=== PATIENT | male | born 1975 | race Caucasian/White ===

== ENCOUNTER 2017-03-14 18:10 | Observation (INO) ==
[2017-03-14] MEDS ORDERED: *HR* Promethazine 25 MG/ML VIAL IVP PRN (21:08)
[2017-03-14] MEDS: *HR* HYDROmorphone (PF) 1 MG/ML SYRINGE IVP PRN (21:39)
[2017-03-14] MEDS: 0.9 % Sodium Chloride 1,000 ML IVC SCH (21:41)
[2017-03-14] MEDS: Ondansetron 4 MG/2 ML VIAL IVP PRN (21:43)
[2017-03-14] MEDS: Pantoprazole 40 MG VIAL IVP SCH (21:45)
[2017-03-14] MEDS: Piperacillin/Tazobactam 3.375 GM in D5% in Water (Mini-Bag+) 100 ML IVPB SCH (21:48)
[2017-03-15] MEDS: Piperacillin/Tazobactam 3.375 GM in D5% in Water (Mini-Bag+) 100 ML IVPB SCH ×3 (05:08→22:04)
[2017-03-15] MEDS ORDERED: Naloxone 0.4 MG/ML INJ IVP PRN ×2 (07:20→20:49)
[2017-03-15 08:18] LABS: Basophils % 0.5 %; Eosinophils # 0.1 K/mcL (0.0-0.6); Eosinophils % 1.8 %; Hematocrit 43.6 % (37.5-50.1); Hemoglobin 14.4 g/dL (12.9-16.9); Immature Granulocytes % 0.2 % (0-4); Immature Platelets 8.7 % (1.1-6.1); Lymphocytes # 1.5 K/mcL (0.6-4.6); Lymphocytes % 25.6 %; Mean Corpuscular Hemoglobin 28.7 pg (28.0-33.3); Mean Platelet Volume 11.5 fL (9.4-12.4); Monocytes # 0.6 K/mcL (0.0-1.3); Monocytes % 10.4 %; Neutrophils # 3.5 K/mcL (1.6-8.9); Platelet Count 130 K/mcL (140-400); Red Blood Count 5.01 M/mcL (4.19-5.50); Red Cell Distribution Width 12.9 % (11.5-14.5); Segmented Neutrophils % 61.5 %
[2017-03-15 08:29] LABS: BUN/Creatinine Ratio 9 (6-26); Blood Urea Nitrogen 12 mg/dL (8-26); Calcium 8.8 mg/dL (8.6-10.8); Carbon Dioxide 27 mEq/L (19-29); Chloride 105 mEq/L (98-109); Glucose 89 mg/dL (70-99); Osmolality,Calculated 283 (280-300); Potassium 4.2 mEq/L (3.5-4.5); Sodium 137 mEq/L (136-145); eGFR For African Americans > 60 (> 60); eGFR For Non-African Americans > 60 (> 60)
[2017-03-15] MEDS: Pantoprazole 40 MG VIAL IVP SCH (08:36)
[2017-03-15] MEDS: Ondansetron 4 MG/2 ML VIAL IVP PRN (08:53)
[2017-03-15] MEDS: *HR* HYDROmorphone (PF) 1 MG/ML SYRINGE IVP PRN (08:53)
--- NOTE | 2017-03-15 08:53 | General Surg History&Physical ---
<Refugio Sanon - Last Filed: 03/15/17 09:01> Date of Encounter: 03/15/17 Time of Encounter: 08:15 Assessment and Plan (1) Acute appendicitis Current Visit: No Status: Acute 42M with no significant past medical history presented with RUQ sharp pain. CT abd/pelvis indicates uncomplicated acute appendicitis. Consent form signed for laparoscopic appendectomy by Dr. Moss later today. Patient understands the risk and benefits of the surgery. Continue NPO until surgery. Continue pain management. Continue PPI. Continue Zosyn Day #1 The assessment and plan as outlined above was discussed with the patient and/or family members who expressed understanding and agreement. All questions were answered. Qualifiers: Acute appendicitis type: unspecified acute appendicitis type Qualified Code (s): K35.80 - Unspecified acute appendicitis History of Present Illness Chief complaint: RUQ abdominal pain HPI: Mr. Cannon is a 42 year old male with no significant past medical history and surgical history includes "back surgery" presented to the emergency room on for RUQ abdominal pain. He denies any previous abdominal surgeries. He states that he is allergic to codeine; it makes his stomach upset. He denies smoking, alcohol use, or illicit drug use. He is currently not taking any medications. His abdominal pain started Wednesday morning without any inciting factors. The pain was diffuse and got worse with food intake. By Wednesday morning , his pain worsened and became sharp on the RUQ. He states the pain was 10/10. He states any movement made the pain worse. He did not take any medications to treat it and went to the ED. Today, his pain is improved with dilaudid . His nausea is controlled with Zofran. CT abd/pelvis indicates uncomplicated acute appendicitis. Consent for laparoscopic appendectomy was obtained. The patient understands the risk and benefits of the surgery. Patient has been NPO since midnight. Past Med Surg Social Fam HX - Past Medical History Medical history: no medical history Psychiatric history: no psych history - Social History Smoking Status: Never smoker Smokeless Tobacco Status: No Alcohol use: none Drug use: none - Family History Father Living Status: Still Living Hx Family Cardiac Disorders: Yes Hx Family Respiratory Disorders: No Hx Family Cancer: No Hx Family GI Disorders: No Hx Family Genitourinary Disorders: No Hx Family Endocrine Disorder: No Hx Family Musculoskeletal Disorders: No Hx Family Neuromuscular Disorders: No Hx Family Neurologic Disorders: No Hx Family HEENT Disorders: No Hx Family Autoimmune Disorders: No Hx Family Reproductive Disorders: No Hx Family Psychosocial Disorders: No Hx Family Medical Disorders: No Medications and Allergies No Known Home Drugs 03/14/17 [History] 3 Allergy/AdvReac Type Severity Reaction Status Date / Time No Known Allergies Allergy Verified 03/14/17 14:31 Review of Systems All systems PM: A 10-system review of systems was performed and is negative for pertinent findings except as documented above in the HPI. - Constitutional anorexia, no chills, no fever(s) - EENT Nose, mouth and throat: no sore throat, no throat swelling - Cardiovascular no chest pain, no diaphoresis, no palpitations - Respiratory no cough, no dyspnea - Gastrointestinal abdominal pain, nausea, no change in bowel habits, no constipation, no diarrhea , no hematemesis, no vomiting - Musculoskeletal no numbness, no tingling - Integumentary no unusual bruising, no wounds, no jaundice - Neurological no confusion, no dizziness, no memory loss, no numbness, no paresthesias, no syncope, no tingling - Psychiatric no anxiety - Hematologic/Lymphatic no easy bleeding, no easy bruising General Surgery Exam Initial Vital Signs Temp Pulse Resp BP Pulse Ox 98.0 F 73 16 134/86 95 03/14/17 20:48 03/14/17 20:48 03/14/17 20:48 03/14/17 20:48 03/14/17 20:48 - General physical appearance well developed, well nourished, no distress - Eyes PERRL, normal ocular movement - ENT normal mucosa, no hearing loss, no congestion, atraumatic, normocephalic, CN 2- 12 grossly intact - Neck trachea midline, no lymphadectomy, no venous distension - Respiratory normal expansion, normal respiratory effort, clear to auscultation - Cardiovascular Cardiovascular exam: Present: RRR, no murmurs/rubs/gallops - Abdomen Abdomen general surgery: Present: bowel sounds present, soft, tender, guarding, rebound (RUQ). Absent: masses, surgical scars, wound Abdominal Tenderness: Present: RUQ - Integumentary Integumentary general surgery: Present: warm and dry, no abnormal pigmentation - Neurologic Present: CN 2-12 grossly intact, normal coordination, normal sensation - Psychiatric Psychiatric general surgery: Present: speech is normal, memory intact Results - Labs 03/15/17 07:45 03/15/17 07:45 Abnormal lab results Plt Count 130 K/mcL (140-400) L 03/15/17 07:45 Immature Plt Fraction 8.7 % (1.1-6.1) H 03/15/17 07:45 Creatinine 1.28 mg/dL (0.72-1.25) H 03/15/17 07:45 Diabetes panel 03/15/17 Range/Units 07:45 Sodium 137 (136-145) mEq/L Potassium 4.2 (3.5-4.5) mEq/L Chloride 105 (98-109) mEq/L Carbon Dioxide 27 (19-29) mEq/L BUN 12 (8-26) mg/dL Creatinine 1.28 H (0.72-1.25) mg/dL Glucose 89 (70-99) mg/dL Calcium 8.8 (8.6-10.8) mg/dL Calcium panel 03/15/17 Range/Units 07:45 Calcium 8.8 (8.6-10.8) mg/dL Pituitary panel 03/15/17 Range/Units 07:45 Sodium 137 (136-145) mEq/L Potassium 4.2 (3.5-4.5) mEq/L Chloride 105 (98-109) mEq/L Carbon Dioxide 27 (19-29) mEq/L BUN 12 (8-26) mg/dL Creatinine 1.28 H (0.72-1.25) mg/dL Glucose 89 (70-99) mg/dL Calcium 8.8 (8.6-10.8) mg/dL Adrenal panel 03/15/17 Range/Units 07:45 Sodium 137 (136-145) mEq/L Potassium 4.2 (3.5-4.5) mEq/L Chloride 105 (98-109) mEq/L Carbon Dioxide 27 (19-29) mEq/L BUN 12 (8-26) mg/dL Creatinine 1.28 H (0.72-1.25) mg/dL Glucose 89 (70-99) mg/dL Calcium 8.8 (8.6-10.8) mg/dL All other labs normal. <Moon Moss - Last Filed: 03/15/17 14:42> Date of Encounter: 03/15/17 Time of Encounter: 14:37 Assessment and Plan (1) Leukocytosis Current Visit: Yes Status: Acute The assessment and plan as outlined above was discussed with the patient and/or family members who expressed understanding and agreement. All questions were answered. continue abx, trend wbc Qualifiers: Leukocytosis type: unspecified Qualified Code(s): D72.829 - Elevated white blood cell count, unspecified (2) Acute appendicitis Current Visit: No Status: Acute The assessment and plan as outlined above was discussed with the patient and/or family members who expressed understanding and agreement. All questions were answered. Qualifiers: Acute appendicitis type: unspecified acute appendicitis type Qualified Code (s): K35.80 - Unspecified acute appendicitis (3) Acute appendicitis Current Visit: Yes Status: Acute The assessment and plan as outlined above was discussed with the patient and/or family members who expressed understanding and agreement. All questions were answered. discussed CT and lab results with patient. will plan laparoscopic appendectomy possible open, risks and benefits discussed and patient wishes to proceed npo, ivf hydration prn pain control Abx Qualifiers: Acute appendicitis type: with localized peritonitis Qualified Code(s): K35.3 - Acute appendicitis with localized peritonitis History of Present Illness HPI: Mr. Cannon is a 42 year old male who began having diffuse abdominal pain 2 days ago. Yesterday the pain became prominent in the RLQ and was sharp. He has had nausea since the pain started but no emesis. No diarrhea or dysuria. No fevers, chills or night sweats. Past Med Surg Social Fam HX - Past Medical History Source: patient Medical history: no medical history Psychiatric history: no psych history - Social History Smoking Status: Never smoker Smokeless Tobacco Status: No Alcohol use: none Drug use: none Occupational status: employed Review of Systems All systems PM: reviewed and no additional remarkable complaints except as stated All systems PM: A 10-system review of systems was performed and is negative for pertinent findings except as documented above in the HPI. General Surgery Exam Initial Vital Signs Temp Pulse Resp BP Pulse Ox 98.0 F 73 16 134/86 95 03/14/17 20:48 03/14/17 20:48 03/14/17 20:48 03/14/17 20:48 03/14/17 20:48 - General physical appearance well developed, well nourished, no distress - Eyes PERRL, normal ocular movement - ENT dry mucosa, atraumatic, normocephalic - Neck trachea midline - Respiratory normal expansion, clear to auscultation - Cardiovascular Cardiovascular exam: Present: RRR - Abdomen Abdomen general surgery: Present: bowel sounds present, soft, tender. Absent: guarding, rebound Abdominal Tenderness: Present: RLQ - Integumentary Integumentary general surgery: Present: warm and dry, no abnormal pigmentation - Neurologic Present: CN 2-12 grossly intact, normal coordination - Musculoskeletal Present: normal gait, normal posture - Psychiatric Psychiatric general surgery: Present: A&Ox3, oriented to person, speech is normal, memory intact Results - Labs 03/15/17 07:45 03/15/17 07:45 Abnormal lab results Plt Count 130 K/mcL (140-400) L 03/15/17 07:45 Immature Plt Fraction 8.7 % (1.1-6.1) H 03/15/17 07:45 Creatinine 1.28 mg/dL (0.72-1.25) H 03/15/17 07:45 Diabetes panel 03/15/17 Range/Units 07:45 Sodium 137 (136-145) mEq/L Potassium 4.2 (3.5-4.5) mEq/L Chloride 105 (98-109) mEq/L Carbon Dioxide 27 (19-29) mEq/L BUN 12 (8-26) mg/dL Creatinine 1.28 H (0.72-1.25) mg/dL Glucose 89 (70-99) mg/dL Calcium 8.8 (8.6-10.8) mg/dL Calcium panel 03/15/17 Range/Units 07:45 Calcium 8.8 (8.6-10.8) mg/dL Pituitary panel 03/15/17 Range/Units 07:45 Sodium 137 (136-145) mEq/L Potassium 4.2 (3.5-4.5) mEq/L Chloride 105 (98-109) mEq/L Carbon Dioxide 27 (19-29) mEq/L BUN 12 (8-26) mg/dL Creatinine 1.28 H (0.72-1.25) mg/dL Glucose 89 (70-99) mg/dL Calcium 8.8 (8.6-10.8) mg/dL Adrenal panel 03/15/17 Range/Units 07:45 Sodium 137 (136-145) mEq/L Potassium 4.2 (3.5-4.5) mEq/L Chloride 105 (98-109) mEq/L Carbon Dioxide 27 (19-29) mEq/L BUN 12 (8-26) mg/dL Creatinine 1.28 H (0.72-1.25) mg/dL Glucose 89 (70-99) mg/dL Calcium 8.8 (8.6-10.8) mg/dL All other labs normal. - Imaging CT scan - abdomen: report reviewed, image reviewed CT scan - pelvis: report reviewed, image reviewed - Attending Attestation I examined this patient and my medical decision-making was reviewed with the Resident Physician. I agree with the documented findings, disposition and treatment plan as described except to the extent set forth below.
--- NOTE | 2017-03-15 18:00 | Anesthesia Evaluation PreOp ---
Date of Encounter: 03/15/17 Time of Encounter: 17:57 - Past History Planned Operation: Laparoscopic Appendectomy Cardiac History: Denies any Significant Hx Pulmonary History: Denies Any Significant HX STITCHER HAND History: Denies Any Significant HX Other Medical History: Denies Any Significant HX Anesthesia History: No Prior Anesthetic Complications, Past Anesthesia Alcohol Use: none Drug use: none Medications and Allergies No Known Home Drugs 03/14/17 [History] 3 Allergy/AdvReac Type Severity Reaction Status Date / Time No Known Allergies Allergy Verified 03/14/17 14:31 - Meds/Allergy Pre-op Review Medications Reviewed: Yes Allergies Reviewed: Yes Beta Blockers on Current Med List: No Anesthesia Results - Labs 03/15/17 07:45 03/15/17 07:45 Anesthesia Exam Vital Signs/O2 Sat, Most Current Temp Pulse Resp BP Pulse Ox 98.7 F 75 16 121/78 96 03/15/17 15:57 03/15/17 15:57 03/15/17 15:57 03/15/17 15:57 03/15/17 15:57 Height: 5'8'' Weight: 147 lbs NPO (# of Hours): 8 Pain Scale: 0 Pain Scale Used: Numeric (1 - 10) - HEENT Pupil (Motor): EOMI Mallampati: II Teeth: Normal Oral Opening: Greater than 3 - STITCHER HAND LOC: Oriented STITCHER HAND Motor: Normal RUE, Normal LUE, Normal RLE, Normal LLE, Normal Face STITCHER HAND Sensory: Normal: RUE, LUE, RLE, LLE, Face - Cardiac Rhythm: Regular Murmur: None - Pulmonary Breath Sounds: bilateral Clear Respiratory Effort: Symmetrical Anesthesia Assess/Plan ASA Score: 2 Modified Mary Ellen Scale for Level of Consciousness: Cooperative, oriented, and tranquil Anesthetic Plan: General Monitoring Plan: Standard Monitors Recovery Plan: PACU
[2017-03-15] MEDS ORDERED: Lidocaine -MPF 4% 5 ML AMPUL ONE (18:12)
[2017-03-15] MEDS ORDERED: *HR* HYDROmorphone (PF) 1 MG/ML SYRINGE IVP PRN ×2 (18:22→20:49)
[2017-03-15] MEDS ORDERED: Ondansetron 4 MG/2 ML VIAL IVP ONE (18:22)
[2017-03-15] MEDS ORDERED: Ketorolac 15 MG/ML VIAL IVP ONE (18:22)
[2017-03-15] MEDS ORDERED: Dexamethasone 4 MG/ML VIAL IVP ONE (18:22)
[2017-03-15] MEDS ORDERED: *HR* Promethazine 25 MG/ML VIAL IVP PRN ×2 (18:22→20:49)
[2017-03-15] MEDS ORDERED: *HR* Labetalol 20 MG/4 ML SYRINGE IVP PRN (18:22)
--- NOTE | 2017-03-15 19:33 | Operative Note ---
Date of procedure: 03/15/17 Pre-op diagnosis: acute appendicitis Post-op diagnosis: same (and umbilical hernia) Procedure: Laparoscopic appendectomy and primary repair of umbilical hernia Complications: none immediate Anesthesia: GETA, local Local Anesthetics: 0.5% Sensorcaine HCL SubQ (cc) Surgeon: Moon Moss Estimated blood loss (cc): 5 Specimen: appendix Condition: stable Disposition: PACU Procedure in Detail: The patient was brought into the operating suite and placed supine on the operating table. Sign-in was performed and everyone was in agreement. Anesthesia was induced and patient was endotracheally intubated by anesthesia without incident. An OG tube was placed by anesthesia. The abdomen was prepped and draped in the usual sterile fashion. A timeout was performed and again everyone was in agreement. A supraumbilical incision was made through the skin and the subcutaneous tissue with an 11 blade. Towel clamps were placed on either side of the umbilicus for retraction. S-retractors were used to dissect down to the anterior abdominal wall linea alba fascia. A lorri was used to bluntly dissect into the umbilical hernia. A 5mm laparoscopic was placed into the defect and insufflation was commenced. The area under entry was visualized with a 5mm 0 degree laparoscope and there was no bleeding and no apparent bowel injury. We placed a suprapubic 5 mm port under direct visualization after first incising the skin with an 11 blade. The laparoscope was placed through this and we exchanged the supraumbilical port for a 12 mm port under direct visualization. We then placed another 5 mm port in the left lower quadrant position under direct visualization after first incising the skin with an 11 blade. The patient was placed in slight Trendelenburg left side down position. The cecum was located as was the appendix. The appendix was grasped and retracted anteriorly and caudally with a laparoscopic [place]. A [place] was used to dissect between the mesoappendix and the appendix at the base of the cecum. The mesoappendix was transected with a laparoscopic flex-ex ETS stapler using a white load. The appendix was transected at the base of the cecum with the same stapler utilizing a white load. The appendix was placed in a laparoscopic Endo Catch bag and removed via the supraumbilical incision site. Both staple lines were evaluated and there was no bleeding and both staple lines were intact. The area was irrigated with sterile saline which was then suctioned free from the abdomen. The insufflation was suctioned free from the abdomen and all trochars removed. We closed the abdominal wall at the umbilical hernia site with an 0 Vicryl [id number] stitch. A 30 cc of 0.5% Marcaine was injected subcutaneously at the 3 port sites. The skin at the two 5 mm port sites was closed with 4-0 Monocryl interrupted subcuticular stitches. The skin at the supraumbilical incision site was closed with a 4-0 Monocryl running subcuticular stitch. Steri-Strips were applied to the wounds. The patient was extubated in the OR and tolerated the procedure well and was taken to PACU after all lap and instrument counts were correct at the end of the case.
--- NOTE | 2017-03-15 19:37 | Discharge Summary ---
<Mai Choi - Last Filed: 03/17/17 11:13> Date of Encounter: 03/17/17 - Discharge Diagnosis (1) NYA (acute kidney injury) Priority: Secondary Status: Acute Comments: Improving 1.37>1.26 Avoid nephrotoxic medications Check labs in 2 days - Discharge Medications Prescriptions: OxyCODONE/APAP 5/325 [Percocet 5/325 MG] 1 each PO Q4HR PRN #30 tab PRN Reason: Pain Amoxicillin/Clavulanate [Augmentin] 875 mg PO BIDWM #14 tablet Docusate [Colace] 100 mg PO BID #30 capsule Home Medications: No Known Home Drugs 03/14/17 [History] Amoxicillin/Clavulanate [Augmentin] 875 mg PO BIDWM #14 tablet 03/16/17 [Rx] Docusate [Colace] 100 mg PO BID #30 capsule 03/16/17 [Rx] OxyCODONE/APAP 5/325 [Percocet 5/325 MG] 1 each PO Q4HR PRN #30 tab 03/16/17 [Rx ] Allergies/Adverse Reactions: 3 Allergy/AdvReac Type Severity Reaction Status Date / Time No Known Allergies Allergy Verified 03/14/17 14:31 General Surgery Exam Initial Vital Signs Temp Pulse Resp BP Pulse Ox 98.0 F 73 16 134/86 95 03/14/17 20:48 03/14/17 20:48 03/14/17 20:48 03/14/17 20:48 03/14/17 20:48 Date of admission: 03/14/17 20:15 Primary care physician: PCP NONE - Patient Status Disposition: Home, Self-Care Condition: Good - Discharge Instructions Instructions: Oxycodone/Acetaminophen (By mouth), Amoxicillin/Clavulanate Potassium (By mouth), Laxative, Stool Softeners (By mouth), Laparoscopic Appendectomy (DC) Follow Up With: NONE,PCP [Primary Care Provider] - Mai Choi [employer] [Advanced Practice Nurse] - 03/25/17 8:30 am (surgery follow-up) Forms: Work/School Release Additional Instructions: No lifting more than 20 pounds for 2 weeks. Okay to take a shower in 24 hours. No tub baths or pools for 1 week. Okay to ride in the car wearing a seatbelt and climb steps. No driving until off narcotics for 24 hours and able to react safely Remove Steri-Strips in 1 week Do not take pain medicine/narcotics on an empty stomach it will likely cause nausea and possibly vomiting. If pain medication is too strong okay to break in half Patient counseled on hydration- drink water/gatorade - Hospital Course Hospital course: Mr. Cannon is a 42 year old male - Time Spent with Patient Total time spent providing and/or coordinating discharge services: <Moon Moss - Last Filed: 03/17/17 16:52> Date of Encounter: 03/17/17 Time of Encounter: 10:00 - Discharge Diagnosis (1) Leukocytosis Priority: Secondary Status: Acute Qualifiers: Leukocytosis type: unspecified Qualified Code(s): D72.829 - Elevated white blood cell count, unspecified (2) Acute appendicitis Priority: Primary Status: Acute Qualifiers: Acute appendicitis type: unspecified acute appendicitis type Qualified Code (s): K35.80 - Unspecified acute appendicitis General Surgery Exam Initial Vital Signs Temp Pulse Resp BP Pulse Ox 98.0 F 73 16 134/86 95 03/14/17 20:48 03/14/17 20:48 03/14/17 20:48 03/14/17 20:48 03/14/17 20:48 - General physical appearance well developed, well nourished - Eyes PERRL, normal ocular movement - ENT normal mucosa, normocephalic - Neck trachea midline - Respiratory normal expansion, normal respiratory effort - Cardiovascular Cardiovascular exam: Present: RRR - Abdomen Abdomen general surgery: Present: bowel sounds present, soft, tender ( appropriate post op tenderness). Absent: guarding, rebound - Incision Incision: Present: clean and dry, intact - Integumentary Integumentary general surgery: Present: warm and dry, no abnormal pigmentation - Neurologic Present: CN 2-12 grossly intact - Musculoskeletal Present: normal gait, normal posture - Psychiatric Psychiatric general surgery: Present: A&Ox3, speech is normal Date of admission: 03/14/17 20:15 Primary care physician: PCP NONE Discharging clinician: Moon Moss Anticipated date of discharge: 03/16/17 - Patient Status Overall status at discharge: patient is progressing back to baseline - Diet and Activity Activity: increase activity as tolerated Diet: advance to your usual diet - Hospital Course Hospital course: Mr. Cannon is a 42 year old male admitted with acute appendicitis. He underwent an uncomplicated laparoscopic appendectomy. Postoperatively he was started on clear liquids, IV pain medicine transitioned to by mouth. He was up a bleeding having appropriate bowel and bladder function. Pain was controlled with by mouth medication. He is discharged home in stable condition. - Time Spent with Patient Total time spent providing and/or coordinating discharge services: Less than 30 minutes Labs on day of discharge: Labs from last 24 hours 03/15/17 03/15/17 07:45 07:45 WBC 5.7 RBC 5.01 Hgb 14.4 Hct 43.6 MCV 87.0 MCH 28.7 MCHC 33.0 RDW 12.9 Plt Count 130 L MPV 11.5 Immature Gran % 0.2 Seg Neutrophils % 61.5 Lymphocytes % 25.6 Monocytes % 10.4 Eosinophils % 1.8 Basophils % 0.5 Neutrophils # 3.5 Lymphocytes # 1.5 Monocytes # 0.6 Eosinophils # 0.1 Basophils # 0.0 Immature Plt Fraction 8.7 H Sodium 137 Potassium 4.2 Chloride 105 Carbon Dioxide 27 BUN 12 Creatinine 1.28 H Est GFR ( Amer) > 60 Est GFR (Non-Af Amer) > 60 BUN/Creatinine Ratio 9 Glucose 89 Calculated Osmolality 283 Calcium 8.8 - Attending Attestation patient was seen by nurse practitioner Estefani Choi prior to discharge
[2017-03-15] MEDS ORDERED: Ondansetron 4 MG/2 ML VIAL IVP PRN (20:49)
[2017-03-15] MEDS ORDERED: *HR* HYDROmorphone (PF) 1 MG/ML SYRINGE ONE (20:58)
[2017-03-15] MEDS ORDERED: *HR* Promethazine 25 MG/ML VIAL ONE (21:06)
[2017-03-15] MEDS ORDERED: Piperacillin/Tazobactam 3.375 GM in D5% in Water (Mini-Bag+) 100 ML IVPB SCH (21:12)
[2017-03-15] MEDS: 0.9 % Sodium Chloride 1,000 ML IVC SCH (21:17)
--- NOTE | 2017-03-15 21:31 | Anesthesia Evaluation Post Op ---
Date of Encounter: 03/15/17 Time of Encounter: 21:30 - Vital Signs Vital Signs: Vital Signs/O2 Sat, Most Current Temp Pulse Resp BP Pulse Ox 97.7 F 93 14 131/85 93 03/15/17 20:13 03/15/17 21:24 03/15/17 21:24 03/15/17 21:24 03/15/17 21:24 - Lungs Lungs: Clear Ascult./Percussion - Airway Airway: Non-obstructed - Cardiovascular Regular Rate - Mental Status Mental Status: Alert & Oriented, Answers Appropriately - Pain Pain Scale: 0 Pain Scale used: Numeric (1 - 10) - Nausea Vomiting Nausea Vomiting: Not Present - Hydration Hydration: Ice chips, Able to void - Discharge PostOp Status: Transfer Patient to floor
[2017-03-16] MEDS: Piperacillin/Tazobactam 3.375 GM in D5% in Water (Mini-Bag+) 100 ML IVPB SCH ×3 (04:55→20:42)
[2017-03-16] MEDS: *HR* OxyCODONE/APAP 5/325 TABLET PO PRN ×3 (06:50→23:38)
[2017-03-16] MEDS ORDERED: *HR* Midazolam HCl 2 MG/2 ML VIAL ONE (07:14)
[2017-03-16] MEDS ORDERED: Ondansetron 4 MG/2 ML VIAL ONE (07:14)
[2017-03-16] MEDS ORDERED: Dexamethasone 4 MG/ML VIAL ONE (07:14)
[2017-03-16] MEDS ORDERED: Lidocaine -MPF 2% 2 ML VIAL ONE (07:14)
[2017-03-16] MEDS ORDERED: *HR* FentaNYL (PF) 100 MCG/2 ML VIAL ONE (07:14)
[2017-03-16] MEDS ORDERED: *HR* Propofol 200 MG/20 ML VIAL IVP ONE (07:14)
[2017-03-16] MEDS ORDERED: *HR* Succinylcholine 200 MG/10 ML VIAL IVP ONE (07:14)
[2017-03-16] MEDS ORDERED: *HR* Rocuronium Bromide 50 MG/5 ML VIAL ONE (07:14)
[2017-03-16] MEDS: Pantoprazole 40 MG VIAL IVP SCH (08:33)
[2017-03-16 12:45] LABS: BUN/Creatinine Ratio 9 (6-26); Blood Urea Nitrogen 13 mg/dL (8-26); Calcium 9.3 mg/dL (8.6-10.8); Carbon Dioxide 26 mEq/L (19-29); Chloride 106 mEq/L (98-109); Glucose 160 mg/dL (70-99); Osmolality,Calculated 290 (280-300); Potassium 4.2 mEq/L (3.5-4.5); Sodium 138 mEq/L (136-145); eGFR For African Americans > 60 (> 60); eGFR For Non-African Americans 56 (> 60)
--- NOTE | 2017-03-16 13:55 | Event Note ---
Date of Encounter: 03/16/17 Time of Encounter: 13:30 Noted slightly worsening creatinine (1.28 to 1.4). Will bolus with 2L NS and recheck bmp after. If creatinine is improved, pt will be ok for d/c. If it has not improved, will consult nephrology.
[2017-03-16] MEDS: 0.9 % Sodium Chloride 1,000 ML IVC SCH ×6 (14:57→19:36)
[2017-03-16 17:08] LABS: BUN/Creatinine Ratio 11 (6-26); Blood Urea Nitrogen 15 mg/dL (8-26); Carbon Dioxide 25 mEq/L (19-29); Chloride 110 mEq/L (98-109); Glucose 127 mg/dL (70-99); Osmolality,Calculated 290 (280-300); Sodium 139 mEq/L (136-145); eGFR For African Americans > 60 (> 60); eGFR For Non-African Americans 58 (> 60)
[2017-03-16 17:21] LABS: Calcium 7.8 mg/dL (8.6-10.8)
[2017-03-17] MEDS: Piperacillin/Tazobactam 3.375 GM in D5% in Water (Mini-Bag+) 100 ML IVPB SCH (05:15)
[2017-03-17] MEDS: 0.9 % Sodium Chloride 1,000 ML IVC SCH (05:17)
[2017-03-17 05:30] LABS: BUN/Creatinine Ratio 9 (6-26); Blood Urea Nitrogen 11 mg/dL (8-26); Calcium 8.1 mg/dL (8.6-10.8); Carbon Dioxide 25 mEq/L (19-29); Chloride 113 mEq/L (98-109); Glucose 98 mg/dL (70-99); Osmolality,Calculated 295 (280-300); Potassium 4.3 mEq/L (3.5-4.5); Sodium 143 mEq/L (136-145); eGFR For African Americans > 60 (> 60); eGFR For Non-African Americans > 60 (> 60)
[2017-03-17] MEDS: Pantoprazole 40 MG VIAL IVP SCH (10:19)
--- NOTE | 2017-03-17 10:39 | Nephrology Consult Note ---
Date of Encounter: 03/17/17 Time of Encounter: 09:50 Assessment and Plan (1) NYA (acute kidney injury) Status: Acute Non-oliguric NYA, most likely multifactorial in etiology with pre-renal contribuing the most (recent poor PO intact, and volume depletion) and recent IV contrast at the time of admission. The pt said that he's never seen another agency trainer. There was a consult order from the primary team for [facility] and therefore the pt was on my list/census this A.M. Recommend checking a UA with microscopy. IVF for volume expansion will help, and in fact both his UOP is excellent and his SCr is trending better. I spent >50% of my time counseling him, his and father on steps to follow for a renal protective strategy such as avoidance of NSAIDs. For any renally cleared Rx that may be prescribed during this NYA, be sure to dose by GFR. Avoid NSAIDs and other nephrotoxins such as Bactrim and IV contrast as able. Will follow with you. Thank you for consulting the [facility] group. History of Present Illness - Reason for Consult Consult date: 03/17/17 Acute Kidney Injury Requesting physician: Aman Rae - Chief Complaint NYA - History of Present Illness Torsten Cannon is a very pleasant 42 y/o WM who presented with with abd pain and underwent surgery. He was found to have an NYA. He denied ever having seen a prior [employer]. He reported some abd pain but no severe diarrhea. He said that he may be getting ready to discharge soon. He reported feeling well overall. Past Med Surg Social Fam HX - Past Medical History Medical history: no medical history Psychiatric history: no psych history - Social History Smoking Status: Never smoker Smokeless Tobacco Status: No Alcohol use: none Drug use: none - Family History Father Living Status: Still Living Hx Family Cardiac Disorders: Yes Hx Family Respiratory Disorders: No Hx Family Cancer: No Hx Family GI Disorders: No Hx Family Genitourinary Disorders: No Hx Family Endocrine Disorder: No Hx Family Musculoskeletal Disorders: No Hx Family Neuromuscular Disorders: No Hx Family Neurologic Disorders: No Hx Family HEENT Disorders: No Hx Family Autoimmune Disorders: No Hx Family Reproductive Disorders: No Hx Family Psychosocial Disorders: No Hx Family Medical Disorders: No Medications and Allergies No Known Home Drugs 03/14/17 [History] Amoxicillin/Clavulanate [Augmentin] 875 mg PO BIDWM #14 tablet 03/16/17 [Rx] Docusate [Colace] 100 mg PO BID #30 capsule 03/16/17 [Rx] OxyCODONE/APAP 5/325 [Percocet 5/325 MG] 1 each PO Q4HR PRN #30 tab 03/16/17 [Rx ] 3 Allergy/AdvReac Type Severity Reaction Status Date / Time No Known Allergies Allergy Verified 03/14/17 14:31 Review of Systems All Systems: reviewed and no additional remarkable complaints except as stated Exam - Vital Signs Vital signs: Initial Vital Signs Temp Pulse Resp BP Pulse Ox 98.0 F 73 16 134/86 95 03/14/17 20:48 03/14/17 20:48 03/14/17 20:48 03/14/17 20:48 03/14/17 20:48 Vital Signs - Last 8 Hours Temp Pulse Resp BP Pulse Ox 03/17/17 07:26 97.8 F 67 16 121/75 96 03/17/17 04:10 98.2 F 73 15 109/70 97 Intake and Output 03/16/17 03/17/17 03/17/17 23:59 07:59 15:59 Intake Total 100 / 100 600 / 600 Balance 100 / 100 600 / 600 Intake: IV Fluids 100 / 100 Zosyn 3.375 GM In 100 / 100 Dextrose 5% (Minibag+) 100 ML 100 ML @ 25 mls/hr IVPB Q8H KATERIN Rx#: [id number] Oral 600 / 600 Other: Meal Dinner Breakfast Percent of Meal Consumed 100% 100% # Voids 1 Weight 84.595 kg Patient Weight 03/17/17 23:59 Weight 84.595 kg - General Appearance General appearance: well-developed, well-nourished, appears started age EENT: ATNC, PERRL, mucous membranes moist Neck: no carotid bruit, supple Respiratory: clear Cardiology: no murmurs, no rub, no edema, regular rate, regular rhythm, normal S1, normal S2 Gastrointestinal: normoactive bowel sounds (without distension) Integumentary: no rash (and surgical incision was not ozzing) Neurologic: no focal deficit, no asterixis, alert and oriented x3 Musculoskeletal: no deformities, no erythema, no cyanosis Psychiatric: mood/affect appropriate, cooperative Results - Lab Results 03/15/17 07:45 03/17/17 04:46 Most recent lab results Calcium 8.1 mg/dL (8.6-10.8) L 03/17/17 04:46 I reviewed the above data blanchard and progress notes in [facility] and [facility] (his prior PCP was Dr. Cornell in [facility]), labs, med lists, vitals and imaging. Consult Discharge Plan - Plan Instructions: Oxycodone/Acetaminophen (By mouth), Amoxicillin/Clavulanate Potassium (By mouth), Laxative, Stool Softeners (By mouth), Laparoscopic Appendectomy (DC) Additional Instructions: No lifting more than 20 pounds for 2 weeks. Okay to take a shower in 24 hours. No tub baths or pools for 1 week. Okay to ride in the car wearing a seatbelt and climb steps. No driving until off narcotics for 24 hours and able to react safely Remove Steri-Strips in 1 week Do not take pain medicine/narcotics on an empty stomach it will likely cause nausea and possibly vomiting. If pain medication is too strong okay to break in half Patient counseled on hydration- drink water/gatorade Referrals: Mai Choi, [employer] [Advanced Practice Nurse] - 03/25/17 8:30 am (surgery follow-up) NONE,PCP [Primary Care Provider] - Prescriptions: OxyCODONE/APAP 5/325 [Percocet 5/325 MG] 1 each PO Q4HR PRN #30 tab PRN Reason: Pain Amoxicillin/Clavulanate [Augmentin] 875 mg PO BIDWM #14 tablet Docusate [Colace] 100 mg PO BID #30 capsule
[2017-03-17 11:06] VITALS: BP 147/95
[2017-03-17 11:20] LABS: Bilirubin,Urine Negative (Negative); Blood,Urine Negative (Negative); Clarity,Urine Clear (Clear); Color,Urine Yellow (Yellow); Glucose,Urine (UA) Normal (Normal); Ketones,Urine Negative (Negative); Leukocyte Esterase,Urine Negative (Negative); Nitrite,Urine Negative (Negative); PH,Urine 6.5 pH Units (5.0-8.0); Protein,Urine Negative (Neg-Trace); Specific Gravity,Urine 1.013 (1.010-1.025); Urobilinogen,Urine Normal (Normal)
[2017-03-17] MEDS: *HR* OxyCODONE/APAP 5/325 TABLET PO PRN (14:54)
== END 2017-03-17 15:06 | disposition home or self-care (01) ==
LOC: 3BNU
PROVIDERS: ADMIT Surgery; ATTEND Surgery